=== PATIENT | male | born 1985 | race Caucasian/White ===

== ENCOUNTER 2023-03-11 04:00 | Day surgery (SDC) | payer OTHER ==
[2023-03-11] VITALS (212 sets, daily range): BP systolic 82–177; BP diastolic 50–120
[~2023-03-11] VITALS: Ht 175.3 cm; Wt 74.8 kg
[2023-03-11 08:41] LABS: BASO% 0.4 % (0-3); EOS% 2.8 % (0-8); HEMOGLOBIN 12.6 g/dl (14.0-18.0); IMMATURE GRANULOCYTES 0.1 % (0.0-5.0); LYMPH% 42.3 % (15-41); MEAN CORPUSCULAR HGB 29.2 pG CALC (26.0-32.0); MEAN CORPUSCULAR HGB CONC 33.2 g/dL CAL (32.0-36.0); MONO% 6.1 % (2-13); NEUT# 5.04 thou/uL (1.82-7.42); NEUT% 48.3 % (42-76); RED BLOOD COUNT 4.32 mill/uL (4.70-6.10)
[2023-03-11 08:56] LABS: ALBUMIN 4.1 g/dL (3.2-5.0); ALKALINE PHOSPHATASE 53 u/l (38-126); ANION GAP 8 (6-22 (CALC)); BILIRUBIN, TOTAL 0.3 mg/dL (0.2-1.3); BUN 10 mg/dL (9-20); BUN/CREATININE RATIO 10 (12-20 (CALC)); CARBON DIOXIDE 33 mmol/l (22-30); CHLORIDE 102 mmol/l (95-108); GFR FOR AFR.AMER. > 60 ML/MIN (>=60 (CALC)); GFR OTHER RACES > 60 ML/MIN (>=60 (CALC)); POTASSIUM 3.7 mmol/l (3.5-5.1); SGOT/AST 23 u/l (17-59); SODIUM 138 mmol/l (137-146)
[2023-03-11] MEDS ORDERED: CLONIDINE0.1 MG PO (16:33)
[2023-03-11] MEDS ORDERED: NALTREXONE50 MG PO (16:33)
[2023-03-11] MEDS ORDERED: KLONOPIN2 MG PO (16:33)
[2023-03-12 00:53] VITALS: BP 165/87
[2023-03-12 03:28] VITALS: BP 158/77
[2023-03-12 06:31] LABS: BASO% 0.1 % (0-3); HEMATOCRIT 43.9 % (39.0-50.0); IMMATURE GRANULOCYTES 0.3 % (0.0-5.0); LYMPH% 3.6 % (15-41); MEAN CELL VOLUME 84.9 fL CALC (80.0-100.0); MEAN CORPUSCULAR HGB 28.6 pG CALC (26.0-32.0); MEAN CORPUSCULAR HGB CONC 33.7 g/dL CAL (32.0-36.0); MONO% 2.1 % (2-13); NEUT# 14.5 thou/uL (1.82-7.42); RED BLOOD COUNT 5.17 mill/uL (4.70-6.10); RED CELL DISTRI WIDTH 11.7 % (11.5-15.5)
[2023-03-12 06:43] LABS: ALKALINE PHOSPHATASE 69 u/l (38-126); BUN 12 mg/dL (9-20); BUN/CREATININE RATIO 12 (12-20 (CALC)); CHLORIDE 98 mmol/l (95-108); GFR FOR AFR.AMER. > 60 ML/MIN (>=60 (CALC)); GFR OTHER RACES > 60 ML/MIN (>=60 (CALC)); POTASSIUM 4.2 mmol/l (3.5-5.1); SGOT/AST 33 u/l (17-59); SODIUM 136 mmol/l (137-146)
[2023-03-12 06:47] LABS: ANION GAP 17 (6-22 (CALC)); BILIRUBIN, TOTAL 0.7 mg/dL (0.2-1.3); CARBON DIOXIDE 25 mmol/l (22-30); TOTAL PROTEIN 7.8 g/dL (6.3-8.2)
[2023-03-12 07:11] LABS: HEMOGLOBIN 14.8 g/dl (14.0-18.0); NEUT% 93.9 % (42-76)
[2023-03-12 08:22] VITALS: BP 158/82
[2023-03-12 09:24] VITALS: BP 158/82
== END 2023-03-12 16:15 | disposition home or self-care (01) | DRG 897 ==
LOC: MS2 04:00 → ANR 04:00
PROVIDERS: ATTEND Anesthesiology Critical Care Medicine
DX: F11.20 Opioid dependence, uncomplicated (principal)
CPT/HCPCS: J2060; J2354; J3475